=== PATIENT | female | born 1970 | race Two or more races ===

== ENCOUNTER 2024-11-24 07:00 | Day surgery (SDC) | payer OTHER ==
[2024-11-24] MEDS ORDERED: DIPHENHYDRAMINE HCL 50 MG/ML VIAL 1ML IV ONE (08:00)
[2024-11-24] MEDS ORDERED: MIDAZOLAM HCL/PF 5 MG/ML VIAL IV ONE (08:00)
[2024-11-24] MEDS ORDERED: NEXIUM 24HR20 MG PO (08:11)
[2024-11-24] MEDS ORDERED: CARAFATE1 GM PO (08:12)
== END 2024-11-24 10:35 | disposition home or self-care (01) ==
LOC: CIR.AMB 07:00
PROVIDERS: ATTEND Surgery
DX: K21.9 Gastro-esophageal reflux disease without esophagitis (principal); E66.09 Other obesity due to excess calories; K26.9 Duodenal ulcer, unspecified as acute or chronic, without hemorrhage or perforation; R10.13 Epigastric pain